=== PATIENT | female | born 1950 | race Caucasian/White ===

== ENCOUNTER 2018-10-13 15:22 | Emergency (ER) | payer OTHER, MEDICARE, BC ==
[2018-10-13 15:33] VITALS: RESP 18; TEMP 98
[2018-10-13] MEDS ORDERED: KETOROLAC 60 MG/2 ML VIAL IM STA (15:40)
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
[2018-10-13 16:43] VITALS: BP 130/74; PULSE 61
== END 2018-10-13 16:58 | disposition home or self-care (01) ==
LOC: EC 15:22
DX: S16.1XXA Strain of muscle, fascia and tendon at neck level, initial encounter (principal); M10.9 Gout, unspecified; Z87.891 Personal history of nicotine dependence; Z79.899 Other long term (current) drug therapy; Z88.0 Allergy status to penicillin; Z88.1 Allergy status to other antibiotic agents; V43.52XA Car driver injured in collision with other type car in traffic accident, initial encounter; Y92.410 Unspecified street and highway as the place of occurrence of the external cause
CPT/HCPCS: 99284; 96372; 72125; J1885